=== PATIENT | male | born 1985 | race Caucasian/White ===

== ENCOUNTER 2023-09-30 16:02 | Emergency (ER) | payer MEDICAID ==
[~2023-09-30] VITALS: Ht 188 cm; Wt 104.5 kg
[2023-09-30] MEDS: acetaminophen 325mg tablet PO ONE (17:10)
[2023-09-30] MEDS: clindamycin 150mg capsule PO ONE (17:10)
[2023-09-30] MEDS ORDERED: CLIN-233 PO (17:38)
[2023-09-30 17:42] VITALS: BP 132/84; PULSE 84; RESP 14; TEMP 98.8; O2SAT 98
== END 2023-09-30 17:45 | disposition home or self-care (01) ==
LOC: ER 16:03
DX: K04.7 Periapical abscess without sinus (principal); M25.551 Pain in right hip; Z88.5 Allergy status to narcotic agent; Z79.2 Long term (current) use of antibiotics
CPT/HCPCS: 73502; 99284